=== PATIENT | female | born 1970 | race African-American/Black ===

== ENCOUNTER 2017-11-20 08:43 | Emergency (ER) | payer OTHER ==
[~2017-11-20] VITALS: Ht 149.9 cm; Wt 50.0 kg
[2017-11-20 09:41] VITALS: BP 130/96
== END 2017-11-20 12:35 | disposition home or self-care (01) ==
LOC: ER 10:19
DX: J06.9 Acute upper respiratory infection, unspecified (principal); F17.210 Nicotine dependence, cigarettes, uncomplicated
CPT/HCPCS: 71046; 81025; 99284

== ENCOUNTER 2019-06-09 10:24 | Emergency (ER) | payer SELFPAY ==
[~2019-06-09] VITALS: Ht 149.9 cm; Wt 50.0 kg
[2019-06-09] MEDS ORDERED: OMEP20TA2 PO (10:41)
[2019-06-09] MEDS ORDERED: ALBUTEROL (0.083%) 2.5MG/3ML NEB HHN STA (11:02)
[2019-06-09] MEDS ORDERED: HYDRALAZINE 20MG/ML VIAL IV ONE (11:30)
[2019-06-09 11:53] LABS: BASOPHILS % 1.1 % (0.0-2.0); EOSINOPHILS % 3.7 % (0.0-5.0); HEMATOCRIT. 44.6 % (36.0-48.0); LYMPHOCYTES % 37.2 % (20.0-50.0); MEAN CORPUSCULAR HEMOGLOBIN 34.1 pg (28.0-32.0); MEAN CORPUSCULAR VOLUME 101.4 fL (81.0-99.0); MEAN PLATELET VOLUME 8.6 fl (7.4-10.4); MONOCYTES % 5.6 % (2.0-8.0); NEUTROPHILS % 52.4 % (40.0-76.0); PLATELET 234 x1000/uL (130-400); RED CELL DISTRIBUTION WIDTH 13.1 % (11.6-14.6)
[2019-06-09 12:01] LABS: CHLORIDE 107 mEq/L (98-107)
[2019-06-09 12:40] VITALS: BP 156/86
== END 2019-06-09 12:50 | disposition home or self-care (01) ==
LOC: ER 10:37
DX: R06.00 Dyspnea, unspecified (principal); I10 Essential (primary) hypertension; K21.9 Gastro-esophageal reflux disease without esophagitis; F17.210 Nicotine dependence, cigarettes, uncomplicated; Z98.890 Other specified postprocedural states
CPT/HCPCS: 36415; 71045; 80053; 84484; 85025; 85379; 93005; 99284; J7611; Z7610; J0360

== ENCOUNTER 2020-03-11 01:04 | Emergency (ER) | payer OTHER ==
[~2020-03-11] VITALS: Ht 149.9 cm; Wt 47.5 kg
[~2020-03-11 01:04] MED LIST: OMEP20TA2 PO
[2020-03-11 01:09] VITALS: BP 127/83
[2020-03-11] MEDS ORDERED: KETOROLAC 60MG/2ML VIAL IM ONE (02:30)
== END 2020-03-11 05:15 | disposition home or self-care (01) ==
LOC: ER 01:15
DX: Z76.0 Encounter for issue of repeat prescription (principal); M25.552 Pain in left hip; F41.0 Panic disorder [episodic paroxysmal anxiety]; J44.9 Chronic obstructive pulmonary disease, unspecified; W01.0XXA Fall on same level from slipping, tripping and stumbling without subsequent striking against object, initial encounter; Y93.9 Activity, unspecified; Y92.9 Unspecified place or not applicable
CPT/HCPCS: 71045; 73502; 93005; 96372; 99283; J1885